=== PATIENT | female | born 1995 | race Two or more races ===

== ENCOUNTER 2021-03-09 10:21 | Emergency (ER) | payer MEDICAID ==
[~2021-03-09] VITALS: Ht 157.5 cm; Wt 71.8 kg
[2021-03-09 13:32] VITALS: BP 101/66
== END 2021-03-09 13:33 | disposition home or self-care (01) ==
LOC: ER 10:22
DX: U07.1 COVID-19 (principal); R05 Cough; R06.02 Shortness of breath; R11.0 Nausea; Z72.89 Other problems related to lifestyle
CPT/HCPCS: 71045; 99283